=== PATIENT | female | born 1950 | race Caucasian/White ===

== ENCOUNTER → 2018-09-04 | Outpatient (CLI) | payer MEDICARE ==
--- NOTE | 2018-09-04 12:56 | XR ---
EXAMINATION TYPE: XR chest 2V DATE OF EXAM: 09/04/2018 COMPARISON: NONE HISTORY: Preop, Z01.818 TECHNIQUE: Frontal and lateral views of the chest are obtained. FINDINGS: There is no focal air space opacity, pleural effusion, or pneumothorax seen. The cardiac silhouette size is within normal limits. The osseous structures are intact. IMPRESSION: No acute cardiopulmonary process.
--- NOTE | 2018-09-04 12:59 | XR ---
Abdomen HISTORY: Z01.818 Frontal view the abdomen submitted. Surgical clips present right upper quadrant and pelvis. There is no evident bowel obstruction or pneu moperitoneum. Retained fecal debris present throughout the distribution of the colon. Degenerative di sc changes in the visualized spine. Vascular calcifications are noted in the pelvis. IMPRESSION: Postop changes. Nonobstructive bowel gas pattern and additional findings above.
== END ==
LOC: LABPAT 10:46
PROVIDERS: ATTEND Orthopaedic Surgery Orthopaedic Surgery of the Spine
DX: Z01.818 Encounter for other preprocedural examination (principal); G95.89 Other specified diseases of spinal cord
CPT/HCPCS: 71046; 74018

== ENCOUNTER 2018-09-11 11:53 | Day surgery (SDC) | payer MEDICARE ==
[2018-09-04 11:42] LABS: Basophils % (A) 0 %; Eosinophils # (A) 0.1 k/uL (0-0.7); Eosinophils % (A) 4 %; HCT 43.6 % (34.0-46.0); HGB 13.9 gm/dL (11.4-16.0); Lymphocytes # (A) 0.8 k/uL (1.0-4.8); Lymphocytes % (A) 24 %; MCH 29.9 pg (25.0-35.0); MCHC 31.8 g/dL (31.0-37.0); Mean Platelet Volume 6.8; Monocytes # (A) 0.3 k/uL (0-1.0); Monocytes % (A) 7 %; Neutrophils # (A) 2.1 k/uL (1.3-7.7); Neutrophils % (A) 62 %; Platelet Count 266 k/uL (150-450); RBC 4.64 m/uL (3.80-5.40); RDW 12.6 % (11.5-15.5); WBC 3.4 k/uL (3.8-10.6)
[2018-09-04 11:50] LABS: INR 0.9 (<1.2); Partial Thromboplastin Time 24.1 sec (22.0-30.0); Prothrombin Time 9.7 sec (9.0-12.0)
[2018-09-04 12:05] LABS: Anion Gap 7 mmol/L; Blood Urea Nitrogen 18 mg/dL (7-17); Calcium 9.3 mg/dL (8.4-10.2); Carbon Dioxide 27 mmol/L (22-30); Chloride 105 mmol/L (98-107); Glucose 95 mg/dL (74-99); Potassium 4.8 mmol/L (3.5-5.1); Sodium 139 mmol/L (137-145)
[~2018-09-11 11:53] MED LIST: BACITRACIN 50,000 UNIT, POLYMYXIN B 500,000 UNIT in SODIUM CHLORIDE 0.9% IRRIGATIO 1,00... IRRIGATION ONE; DEXAMETHASONE SOD PHOSPHATE 10 MG/ML 1 ML VIAL IV ONE; LIDOCAINE 1% 20 ML VIAL (10MG/ML) FOR IV START INTRADERMA PRN; MIDAZOLAM (PF) 2 MG/2 ML VIAL IV PRN; ONDANSETRON 4 MG/2 ML VIAL IVP ONE; ceFAZolin IN SWFI 2 GM/20 ML SYRINGE IVP ONE; fentaNYL (PF) 50 MCG/ML 2 ML AMP IV PRN
[2018-09-11] MEDS: LACTATED RINGERS 1,000 ML IV SCH (12:22)
[2018-09-11] MEDS ORDERED: fentaNYL (PF) 50 MCG/ML 2 ML AMP ONE (12:28)
[2018-09-11] MEDS ORDERED: LIDOCAINE 1% INJ 10MG/ML (20 ML MDV) ONE (12:28)
[2018-09-11] MEDS ORDERED: PROPOFOL 10 MG/ML 20 ML VIAL IV ONE (12:28)
[2018-09-11] MEDS ORDERED: DEXAMETHASONE SOD PHOS (MDV) 100 MG/10 ML VIAL ONE (12:28)
[2018-09-11] MEDS ORDERED: ePHEDrine SULFATE/0.9% NACL/PF 50 MG/5 ML SYRINGE IV ONE (12:28)
[2018-09-11] MEDS ORDERED: SUCCINYLCHOLINE CHLORIDE 100 MG/5 ML SYR IV ONE (12:28)
[2018-09-11] MEDS ORDERED: MIDAZOLAM 2 MG/2 ML VIAL ONE (12:28)
[2018-09-11] MEDS ORDERED: BUPIVACAINE-EPI 0.5%-1:200,000 10 ML VIAL SQ ONE (13:13)
[2018-09-11] MEDS ORDERED: GELATIN SPONGE,ABSORB (LARGE) 1 EACH SPONGE MISCELLANE ONE (13:13)
[2018-09-11] MEDS ORDERED: THROMBIN (BOVINE) 5,000 UNIT VIAL TOPICAL ONE (13:13)
[2018-09-11] MEDS ORDERED: BACITRACIN 50,000 UNIT, POLYMYXIN B 500,000 UNIT in SODIUM CHLORIDE 0.9% IRRIGATIO 1,00... IRRIGATION ONE (13:14)
[2018-09-11] MEDS ORDERED: LACTATED RINGERS 1,000 ML IV ONE (15:27)
[2018-09-11] MEDS ORDERED: BENZOCAINE/MENTHOL LOZENG 1 EACH LOZENGE MUCOUS MEM PRN (15:44)
[2018-09-11] MEDS ORDERED: HYDROmorphone 0.5 MG/0.5 ML SYRINGE IVP PRN (15:44)
[2018-09-11] MEDS ORDERED: ONDANSETRON 4 MG/2 ML VIAL IVP PRN (15:44)
[2018-09-11] MEDS ORDERED: HYDROmorphone 1 MG/ML 1 ML SYRINGE IVP PRN (15:44)
[2018-09-11] MEDS ORDERED: CYCLOBENZAPRINE 10 MG TAB PO PRN (15:47)
[2018-09-11] MEDS ORDERED: DICYCLOMINE 20 MG TAB PO PRN (15:47)
--- NOTE | 2018-09-11 15:59 | P.OP ---
Date of Procedure: 09/11/18 Preoperative Diagnosis: Cervical Myelopathy, Severe cervical stenosis C5 6, cervical stenosis C4 5 C6 7, degenerative disc disease, left upper extremity radiculopathy, left upper extremity weakness, herniated nucleus pulposis C5 6 C4 5 C6 7, left upper extremity carpal tunnel syndrome Postoperative Diagnosis: Cervical Myelopathy, Severe cervical stenosis C5 6, cervical stenosis C4 5 C6 7, degenerative disc disease, left upper extremity radiculopathy, left upper extremity weakness, herniated nucleus pulposis C5 6 C4 5 C6 7, left upper extremity carpal tunnel syndrome Anesthesia: GETA Pathology: none sent Condition: stable Disposition: PACU Description of Procedure: BRIEF OPERATIVE NOTE Preoperative Diagnosis: Cervical Myelopathy, Severe cervical stenosis C5 6, cervical stenosis C4 5 C6 7, degenerative disc disease, left upper extremity radiculopathy, left upper extremity weakness, herniated nucleus pulposis C5 6 C4 5 C6 7, left upper extremity carpal tunnel syndrome Postoperative Diagnosis: Cervical Myelopathy, Severe cervical stenosis C5 6, cervical stenosis C4 5 C6 7, degenerative disc disease, left upper extremity radiculopathy, left upper extremity weakness, herniated nucleus pulposis C5 6 C4 5 C6 7, left upper extremity carpal tunnel syndrome: Procedure: Anterior cervical decompression with discectomy and fusion C4 5 C5 6 C6 7 Placement of interbody graft C4 5 C5 6 C6 7 Application of anterior cervical plate C4 5 6 and 7 Further procedures also performed during the anesthesia: Left upper extremity carpal tunnel release, through separate incision with the same anesthesia Surgeon: Dr. Berrios Fruit Press Operator: Paulino White is present throughout the entire the case persistence during positioning, dissection, exposure, visualization, and all crucial elements of the case as well as closure for both the anterior cervical decompression discectomy and fusion as well as the carpal tunnel release at the left upper extremity Anesthesia: General anesthesia Estimated blood loss: Approximately 50 mL Complications: None apparent Components implanted: K2M [place] anterior cervical plate system measuring 51 mm with 8 screws and tVikos interbody allograft bone graft and 1 mL of DBX bone putty supplement the bone graft Tourniquet time: For the carpal tunnel release portion of the procedure the tourniquet was inflated to 250 mmHg for Mahendra 12 minutes Disposition: To recovery room in good stable condition. OPERATIVE INDICATIONS The patient has had long-standing issues in their neck and upper extremities. She is found have weakness at her left upper extremity and was having worsening in terms of her function in her left arm. She was found have severe cervical stenosis at C4 5 C5 6 and C6 7 with large disc herniation particular at C5 6 with evidence of myelomalacia and was having signs of cervical myelopathy at her upper extremities. She was also having evidence of carpal tunnel syndrome at her left upper extremity which was electrodiagnostic improvement. The patient is having worsening of her symptoms despite aggressive conservative treatment. The patient has been through conservative treatment. We discussed various treatment options including surgery, and the patient wishes to proceed with surgery We discussed the risk, patient's alternatives and benefits of surgery including but not limited to, risk of bleeding risk of infection, risk of need for further surgery, risk of decreased, loss of motion, muscle function, malunion nonunion, hardware failure, nerve damage, paralysis, heart attack, and . We discussed the issues involved in her cervical spine and the possible permanent damage that has already been done with her myelopathy at her cervical spine we also discussed the risk of occasions alternatives and benefits of treatment of her wrist at the carpal tunnel site. The patient like to pursue surgical intervention signed informed consent for both her cervical spine and for her left carpal tunnel. OPERATIVE SUMMARY After discussing all the risks, patient alternatives and benefits at length, the patient elected to proceed with surgical intervention, signed informed consent, and presented for their procedure. The patient was seen and examined in the preoperative holding area and the surgical site was marked. The patient was given antibiotics and brought to the operating room. The patient was positioned on the operating room table in a supine position being careful to pad any bony prominences and pressure points. The patient was sedated and intubated by anesthesia in standard fashion. Once the airway and C- spine were stabilized the patient's arms were padded and tucked at her side, with her shoulders gently taped. The head was placed in a donut pad with the neck in good neutral alignment and position. We were careful to maintain the patient's cervical spine and good neutral alignment and position throughout. The patient was prepped and draped in a normal standard fashion. An appropriate timeout and keystone protocol performed. We were able to proceed with the surgery. The local wound area was infiltrated with local anesthetic. An incision was made transversely approximately 2-1/2 cm over the appropriate levels at level C5 6. Dissection was taken down subcutaneously to the level of the platysma which was split in line with its fibers. Dissection was taken with a carotid approach, with the trachea and esophagus medial and the carotid sheath laterally. We dissected down to the anterior surface of the vertebral bodies. Intraoperative x-ray was taken which showed a marker at the appropriate level. With the appropriate level positively confirmed, we were able to proceed with discectomy at the appropriate levels starting at C4 5 and then at C5 6 and C6 7. All of the operative levels were exposed appropriately. The patient had all their twitches back, and there was no evidence of recurrent laryngeal issue. The wound was copiously irrigated and suctioned dry as had been done periodically throughout the case. At the appropriate level/levels, strength C4 5 and then moving C5 6 and then C6 7, I established an annulotomy with an 11 blade scalpel. A discectomy was performed with a combination of pituitary rongeurs, curettes, a high-speed bur, and Kerrison rongeurs. The posterior longitudinal ligament was taken down as were any posterior osteophytes. She had evidence of significant stenosis at each levels but had extra severe stenosis at C5 6 with large herniation and posterior spurring. This was removed and decompressed appropriately. This gave good central and bilateral foraminal decompression. There is no evidence of any dural tear or leak. The endplates were prepared with a high-speed bur. With the endplates in good parallel position, I was able to size for the appropriate size interbody graft. The wound was irrigated and suctioned dry the graft was prepared and malleted into position. It had good alignment and position with the anterior surface flush with the anterior surface of the vertebral bodies. This was done similarly the appropriate levels at C4 5 C5 6 and C6 7. With the grafts intact, I was able to measure and contour and appropriate sized plate. The plate was positioned at the midline over the appropriate levels from C4 to C7 with a 51 mm plate. Screw holes were established with a hand drill and drill guide. Screws were placed in good alignment and position with excellent bony purchase. They were seated under the locking device. The construct was checked and found to be stable. Intraoperative x-ray was taken which showed good alignment and position of the implants at the appropriate levels from C4 to C7. There was no evidence of any dural tear or leak. Good hemostasis was maintained. The wound was copiously irrigated and suctioned dry as had been done periodically throughout the case. The platysma was closed with absorbable suture. The subcutaneous tissue was closed. The subcuticular tissue was closed with absorbable suture. The wound was cleaned and dried and dressed appropriately. A soft cervical collar was placed appropriately. At this point under the same anesthesia her left upper extremity was then prepped and draped in a normal standard fashion. Her arm was elevated and a tourniquet was inflated to approximately 250 mmHg. Appropriately timeout was performed again for her left upper extremity for the carpal tunnel surgery. The local wound area isn't infiltrated with local anesthetic and incision was made sharply to skin and subcutis tissue with a 15 blade scalpel proximally 1/2 cm in length. Dissection was taken down through subcutaneous tissue to the transverse carpal ligament which was identified appropriately. The transcarpal ligament was then transected initially with 11 blade scalpel and then with tenotomy status scissors. I was able to extend the release of the transcarpal ligament proximally and distally. I had good release through the carpal tunnel. The median nerve was explored and found to be intact. There is no abnormal growth at the median nerve or within the tunnel. The wound was copiously irrigated and suctioned dry having, pushed good decompression at the carpal tunnel. We're able proceed with closure. The skin was closed with 5-0 nylon. The wrist was then dressed properly appropriate dressing and Kanu wrap and the tourniquet was dropped at 12 minutes. The patient was woken up by anesthesia, extubated, transferred back gently to their hospital bed and brought to the recovery room in good stable condition. The patient will be admitted to the hospital for appropriate postoperative care, medical management and monitoring. We will continue to follow them closely about the postoperative course.
--- NOTE | 2018-09-11 16:53 | XR ---
EXAMINATION TYPE: XR cervical spine 1V DATE OF EXAM: 09/11/2018 COMPARISON: NONE HISTORY: 68-year-old female needle placement during surgery TECHNIQUE: Single crosstable intraoperative lateral view FINDINGS: The patient is intubated. A metallic needle is present in the anterior C4-C5 disc interspace. IMPRESSION: Metallic needle at the anterior C4-C5 disc interspace.
[2018-09-11 17:09] VITALS: BMI 29.5
[2018-09-11] MEDS: HYDROcodone/APAP 5-325MG 1 EACH TAB PO PRN ×2 (17:23→22:08)
--- NOTE | 2018-09-11 18:26 | XR ---
EXAMINATION TYPE: XR cervical spine 1V DATE OF EXAM: 09/11/2018 COMPARISON: NONE HISTORY: 68-year-old female hardware placement TECHNIQUE: Single crosstable lateral portable view of FINDINGS: Patient is intubated in the OR. Interval placement of C4-C7 ACDF hardware with satisfactory alignment . C7-T1 is obscured by the patient's shoulders and not assessed. IMPRESSION: Interval placement of C4-C7 ACDF.
[2018-09-11] MEDS: SODIUM CHLORIDE 0.9% 1,000 ML IV SCH (19:11)
[2018-09-11] MEDS: ceFAZolin IN SWFI 2 GM/20 ML SYRINGE IVP SCH (20:31)
[2018-09-11] MEDS ORDERED: DOCUSATE 100 MG CAP PO SCH (21:00)
[2018-09-11] MEDS ORDERED: cloNIDine HCL 0.1 MG TAB PO SCH (21:00)
[2018-09-12] MEDS: SODIUM CHLORIDE 0.9% 1,000 ML IV SCH (01:09)
[2018-09-12] MEDS: LACTATED RINGERS 1,000 ML IV SCH (01:10)
[2018-09-12] MEDS: HYDROcodone/APAP 5-325MG 1 EACH TAB PO PRN ×3 (01:30→09:47)
[2018-09-12 01:44] VITALS: TEMP 97.8
[2018-09-12] MEDS: ceFAZolin IN SWFI 2 GM/20 ML SYRINGE IVP SCH (05:36)
[2018-09-12 07:14] VITALS: BP 106/66; PULSE 68; RESP 16
--- NOTE | 2018-09-12 08:55 | P.DS ---
Providers Date of admission: 09/11/2018 Expected date of discharge: 09/12/18 Attending physician: Deanna Berrios Primary care physician: Jaz Sorensen - Discharge Diagnosis(es) (1) Cervical myelopathy with cervical radiculopathy Current Visit: Yes Status: Acute (2) Cervical stenosis of spinal canal Current Visit: Yes Status: Acute (3) Degenerative cervical disc Current Visit: Yes Status: Acute (4) Cervical disc herniation Current Visit: Yes Status: Acute (5) Carpal tunnel syndrome of left wrist Current Visit: Yes Status: Acute (6) COPD (chronic obstructive pulmonary disease) Current Visit: Yes Status: Acute Hospital Course: This is a pleasant 68-year-old female who presented with cervical myelopathy, C5-6 severe cervical stenosis and herniated nucleus pulposus, C4-5 and C6-7 cervical stenosis and herniated nucleus pulposis, cervical degenerative disc disease, left upper extremity radiculopathy, left upper extremity weakness, and left upper extremity carpal tunnel syndrome who failed outpatient conservative therapy. She was admitted for a C4-5, C5-6, and C6-7 anterior cervical decompression and fusion and left carpal tunnel release. The patient tolerated the procedure well and did well postoperatively. She is not currently experiencing any numbness and tingling in the bilateral upper extremities. Her pain is been adequately controlled. She is not experiencing any significant c ervical pain. Her most significant complaint is some difficulty with swallowing liquids. She's been swallowing regular foods without significant difficulty. She is ready for discharge today. Condition on day of discharge stable. Patient will be discharged home. Patient was cleared preoperatively for surgery by Dr. Sorensen. Patient currently denies any nausea, vomiting, fever, or chills. Patient is voiding freely without difficulty. Patient may shower Tegaderm dressing intact. Patient may remove Tegaderm dressing in 3 days and shower without a dressing at that time. Patient should keep Steri-Strips intact and allow them to fall off naturally. Patient should refrain from driving until at least after their first follow-up appointment in the office. Patient should avoid excessive neck flexion, extension, rotation, and lateral sidebending; no overhead lifting; no lifting greater than 10 pounds. MAPS has been reviewed today, 09/12/2018, with an Overall Overdose Risk Score of 110 and a narcotic score of 40. An "Opiod Start Talking" Forn has been signed by the patient and myself in place in the patient's chart. A prescription has been written for Narco 5 mg/325 mg take 1 tab every 4 hours as needed for pain, dispensed #42. Patient should avoid anti-inflammatory medications over the next 6 weeks postoperatively. Physical Exam on day of discharge: Patient is awake, alert, and oriented 3 Vital signs stable Good chest excursion with deep inspiration and expiration Abdomen soft nontender No signs or symptoms of DVT; no calf pain Full range of motion of the cervical spine with adequate flexion, extension, and bilateral rotation Forensic Medical Examiner strength, thumb strength, interosseous strength, biceps strength, triceps strength, and shoulder strength positive sustained on the right Biceps strength, triceps strength, and shoulder strength positive sustained on the left Dressing is intact over the left wrist following left carpal tunnel release; dressing is clean, dry, and intact Soft cervical collar intact Incision over the cervical spine is clean, dry, and intact; no erythema, purulence, or signs of infection Tegaderm dressing and non-stick Telfa is removed and replaced during physical examination with Tegaderm and nonstick Telfa Procedures: C4-5, C5-6, and C6-7 anterior cervical decompression and fusion and left carpal tunnel release Patient Condition at Discharge: Stable Plan - Discharge Summary Discharge Rx Participant: No New Discharge Prescriptions: New HYDROcodone/APAP 5-325MG [[place] 5] 1 each PO Q4HR PRN #42 tab PRN Reason: Pain No Action Magnesium Gluconate [Magonate] 500 - 750 mg PO DAILY cloNIDine HCL [Catapres] 0.1 mg PO HS Escitalopram [Lexapro] 10 mg PO DAILY Dicyclomine [Bentyl] 40 mg PO QID PRN PRN Reason: IBS Cyclobenzaprine [Flexeril] 10 mg PO HS PRN PRN Reason: Tension Headache ALPRAZolam [Xanax] 0.5 mg PO HS PRN PRN Reason: Anxiety [place] 400 mg PO DAILY Sennosides [Senna] 1 - 2 tab PO DAILY PRN PRN Reason: Constipation Docusate [Colace] 200 mg PO HS Discharge Medication List ALPRAZolam [Xanax] 0.5 mg PO HS PRN 09/01/18 [History] Cyclobenzaprine [Flexeril] 10 mg PO HS PRN 09/01/18 [History] Dicyclomine [Bentyl] 40 mg PO QID PRN 09/01/18 [History] Docusate [Colace] 200 mg PO HS 09/01/18 [History] Escitalopram [Lexapro] 10 mg PO DAILY 09/01/18 [History] Magnesium Gluconate [Magonate] 500 - 750 mg PO DAILY 09/01/18 [History] Sennosides [Senna] 1 - 2 tab PO DAILY PRN 09/01/18 [History] [place] 400 mg PO DAILY 09/01/18 [History] cloNIDine HCL [Catapres] 0.1 mg PO HS 09/01/18 [History] HYDROcodone/APAP 5-325MG [[place] 5] 1 each PO Q4HR PRN #42 tab 09/12/18 [Rx] Follow up Appointment(s)/Referral(s): Paulino Moran, KIKI [PHYSICIAN [facility] TECHNICIAN] - 09/15/18 9:00 am (Patient may follow-up with Paulino Moran PA-C or Dr. Al Berrios at [facility] on 09/15/2018, following discharge. ) Activity/Diet/Wound Care/Special Instructions: 1. Patient may shower with Tegaderm dressing intact. 2. Patient may remove Tegaderm dressing in 3 days and shower without a dressing at that time. 3. Patient should keep Steri-Strips intact and allow them to fall off naturally. 4. Patient should refrain from driving until at least after their first follow- up appointment in the office. 5. Patient should avoid excessive cervical flexion, extension, rotation, and side bending; avoid overhead lifting; no lifting greater than 10 pounds 6. May wear soft cervical collar for comfort support as needed 7. Keep dressing over the left wrist clean, dry, and intact 8. Avoid heavy activity with the left wrist; may use left hand for light activities including holding a cup and writing 9. Take medications as prescribed 10. Do not soak in tub Discharge Disposition: HOME SELF-CARE
[2018-09-12] MEDS ORDERED: ESCITALOPRAM 10 MG TAB PO SCH (09:00)
[2018-09-12] MEDS ORDERED: SENNOSIDES-DOCUSATE SODIUM 1 EACH TAB PO SCH (09:00)
[2018-09-12] MEDS ORDERED: MAGNESIUM OXIDE 400 MG TAB PO SCH (12:00)
== END 2018-09-12 10:25 | disposition home or self-care (01) ==
LOC: OR 11:53 → 4SSUR 15:26 → OR 09-12 10:25
PROVIDERS: ATTEND Orthopaedic Surgery Orthopaedic Surgery of the Spine
DX: G95.9 Disease of spinal cord, unspecified (principal); M48.02 Spinal stenosis, cervical region; M50.10 Cervical disc disorder with radiculopathy, unspecified cervical region; M50.121 Cervical disc disorder at C4-C5 level with radiculopathy; M43.12 Spondylolisthesis, cervical region; M47.22 Other spondylosis with radiculopathy, cervical region; G56.02 Carpal tunnel syndrome, left upper limb; J44.9 Chronic obstructive pulmonary disease, unspecified; K50.90 Crohn's disease, unspecified, without complications; J98.4 Other disorders of lung; Z87.891 Personal history of nicotine dependence; Z79.899 Other long term (current) drug therapy
CPT/HCPCS: 86900; 86901; 80048; 85025; 85610; 85730; 86850; 72020; 22551; 22552 ×2; 20931; C1713 ×2; C1762 ×2; J2250; J2405; J2001; J3010; J1100; J0330; J2704; J0690 ×2

== ENCOUNTER → 2021-06-02 | Outpatient (CLI) | payer MEDICARE ==
[2021-06-02 14:51] LABS: Basophils % (A) 1 %; Eosinophils # (A) 0.2 k/uL (0-0.7); Eosinophils % (A) 3 %; HCT 50.7 % (34.0-46.0); HGB 16.4 gm/dL (11.4-16.0); Lymphocytes # (A) 1.4 k/uL (1.0-4.8); Lymphocytes % (A) 22 %; MCH 31.6 pg (25.0-35.0); MCHC 32.4 g/dL (31.0-37.0); MCV 97.6 fL (80.0-100.0); Mean Platelet Volume 7.6; Monocytes # (A) 0.4 k/uL (0-1.0); Monocytes % (A) 6 %; Neutrophils # (A) 4.4 k/uL (1.3-7.7); Neutrophils % (A) 68 %; Platelet Count 255 k/uL (150-450); RBC 5.19 m/uL (3.80-5.40); RDW 11.8 % (11.5-15.5); WBC 6.5 k/uL (3.8-10.6)
[2021-06-02 15:00] LABS: Potassium 4.3 mmol/L (3.5-5.1)
[2021-06-02 15:08] LABS: INR 0.9 (<1.2)
== END | disposition home or self-care (01) ==
LOC: LABPAT 14:13
PROVIDERS: ATTEND Family Medicine
DX: Z01.812 Encounter for preprocedural laboratory examination (principal); R91.1 Solitary pulmonary nodule
CPT/HCPCS: 36415; 80051; 82565; 82947; 84520; 85025; 85610; 85730; 86850; 86900; 86901

== ENCOUNTER 2021-06-11 05:50 | Inpatient (IN) | payer MEDICARE ==
[2021-06-03 16:07] VITALS: BMI 26.9
[~2021-06-11 05:50] MED LIST changes: -BACITRACIN 50,000 UNIT, POLYMYXIN B 500,000 UNIT in SODIUM CHLORIDE 0.9% IRRIGATIO 1,00... IRRIGATION ONE; -DEXAMETHASONE SOD PHOSPHATE 10 MG/ML 1 ML VIAL IV ONE; +DEXAMETHASONE SOD PHOSPHATE 4 MG/ML 1 ML VIAL IV ONE; +LACTATED RINGERS 1,000 ML IV SCH; +LIDOCAINE 1% (10MG/ML) FOR IV START INTRADERMA PRN; -LIDOCAINE 1% 20 ML VIAL (10MG/ML) FOR IV START INTRADERMA PRN; -MIDAZOLAM (PF) 2 MG/2 ML VIAL IV PRN; -ceFAZolin IN SWFI 2 GM/20 ML SYRINGE IVP ONE; -fentaNYL (PF) 50 MCG/ML 2 ML AMP IV PRN
[2021-06-11] MEDS ORDERED: METOCLOPRAMIDE 5 MG/ML 2 ML VIAL IVP PRN (07:00)
[2021-06-11] MEDS ORDERED: MIDAZOLAM 2 MG/2 ML VIAL IVP ONE (07:12)
[2021-06-11] MEDS ORDERED: BUPIVACAINE (PF) 0.5% 30 ML VIAL SQ ONE ×3 (07:29→09:25)
[2021-06-11] MEDS ORDERED: GLYCOPYRROLATE 0.2 MG/ML 2 ML VIAL ONE (07:35)
[2021-06-11] MEDS ORDERED: SUCCINYLCHOLINE CHLORIDE 100 MG/5 ML SYR IV ONE (07:35)
[2021-06-11] MEDS ORDERED: NEOSTIGMINE 1 MG/ML 10 ML VIAL ONE (07:35)
[2021-06-11] MEDS ORDERED: ROPIVACAINE 5 MG/ML 30 ML VIAL ONE (07:35)
[2021-06-11] MEDS ORDERED: PHENYLEPHRINE-0.9% NACL SYG 1,000 MCG/10 ML SYRINGE ONE (07:35)
[2021-06-11] MEDS ORDERED: ROCURONIUM 10 MG/ML (5 ML VIAL) IV ONE (07:35)
[2021-06-11] MEDS ORDERED: fentaNYL (PF) 50 MCG/ML 2 ML AMP ONE (07:35)
[2021-06-11] MEDS ORDERED: LIDOCAINE 1% INJ 10MG/ML (20 ML MDV) ONE (07:35)
[2021-06-11] MEDS ORDERED: PROPOFOL 10 MG/ML 20 ML VIAL IV ONE (07:35)
[2021-06-11] MEDS ORDERED: HYDROmorphone (PF) 1 MG/ML ONE (07:35)
[2021-06-11] MEDS ORDERED: LACTATED RINGERS 1,000 ML IV ONE (09:07)
--- NOTE | 2021-06-11 09:23 | P.OP ---
Date of Procedure: 06/11/21 Preoperative Diagnosis: Rught upper lobe mass Postoperative Diagnosis: Same Procedure(s) Performed: Robotic-assisted thoracoscopic right upper lobe wedge resection with mediastinal lymph node dissection Anesthesia: GETA Surgeon: Evans Geller Estimated Blood Loss (ml): 5 IV fluids (ml): 800 Urine output (ml): 300 Pathology: other (Wedge resection right upper lobe sent for frozen and permanent. Lymph node dissection including R4, level 7,R8, R 10, and R 11 lymph nodes all sent for permanent section) Condition: stable Disposition: PACU Indications for Procedure: 71-year-old female with history of smoking had a screening CT for lung cancer which was positive for small peripheral mass in the right upper lobe. PET scan showed mild uptake in the mass as well as mild diffuse uptake in the lymph nodes throughout. There were no markedly enlarged lymph nodes. Patient has severe bullous lung disease and needle biopsy was felt to be high risk. Also the lesion was less than a centimeter. Was decided to proceed with wedge resection and mediastinal lymph node dissection for diagnosis and staging. Presumptive diagnosis of cancer. Operative Findings: Diffuse lung disease present. There was a small apparent nodule in the right upper lobe with pleural puckering of the fissure. Wedge resection was taken with good gross margins. Multiple lymph nodes were biopsied. These appeared anthracotic soft and without evidence of disease. Description of Procedure: The patient was brought to the operating room, placed supine on the operating room table, anesthetized and intubated with a double-lumen endotracheal tube. The tube was positioned with fiberoptic bronchoscopy. No endobronchial lesions were noted. Tube was secured and the patient was turned in the left lateral decubitus position and appropriately positioned for robotic surgery. The right chest was sterilely prepped and draped. Initial incision was made in the seventh interspace in the anterior axillary line. A 8 mm robotic port was placed here. Thoracoscopy demonstrated placement in the pleural space CO2 insufflation was begun. A 12 mm robotic port was placed in the eighth interspace posterior to this and a second 12 mm port was placed anterior to this. An 8 mm port was placed in the fourth interspace posteriorly. A working port was placed between the 2 most anterior ports at the level of the diaphragm. The robot was docked. The chest was explored with findings as noted above. Wedge resection of the pulmonary nodule was performed with multiple firings of the robotic stapler. This was then placed in an Endo Catch bag and laced on the back table. It was subsequently cut and a small piece obtained for possible culture and the remainder sent for frozen section. We now proceeded with the lymph node dissection. We began by dissecting out the level X lymph nodes on the right side and sending these for permanent section. We then moved up to the R4 lymph node region and resected a number of nodes in this area. These were also sent for permanent section. We now moved posteriorly and resected the R8 and level VII lymph nodes and sent these for permanent section. Dissection was carried anterior to the rhonchus intermedius and the R 11 lymph nodes between the takeoff of the upper lobe and bronchus intermedius were resected and sent as R 11 lymph nodes. Good hemostasis was maintained throughout. 28-Thai chest tube was placed through separate stab incision and positioned posterior apically. The lung was reexpanded under thoracoscopic visualization. The chest tube was secured with 0 Ethibond suture and the incisions closed with layers of Vicryl suture. Dry sterile dressings were applied the patient was transferred to recovery in stable condition. Frozen section was still pending at the time of this dictation.
--- NOTE | 2021-06-11 10:00 | XR ---
EXAMINATION TYPE: XR chest 1V portable DATE OF EXAM: 06/11/2021 CLINICAL HISTORY: Post-VATS . TECHNIQUE: Single AP portable upright view of the chest is obtained. COMPARISON: Chest x-ray from September 04, 2018. Outside Chest CT April 16, 2021 and PET/CT April FINDINGS: Background chronic emphysematous change redemonstrated. New small left pleural effusion. N ew left mid to lower lung infiltrate and/or atelectasis greatest along the periphery. New right-sided chest tube without visualized pneumothorax. Possible air-fluid level in thin-walled c yst right mid lung laterally adjacent to chest tube. Osseous structures are demineralized. Surgical changes cervical spine as partially imaged. Cardiac si lhouette size is upper limits of normal. IMPRESSION: As above.
[2021-06-11] MEDS: HYDROmorphone 0.5 MG/0.5 ML SYRINGE IVP PRN ×2 (10:09→10:21)
--- NOTE | 2021-06-11 12:00 | P.ANPRN ---
Procedure Note - Anesthesia - Nerve Block Performed Right Erector Spinae Single Time Out Performed: Yes ([id number]) Date of Procedure: 06/11/21 Procedure Start Time: 07:12 Procedure Stop Time: 07:16 Location of Patient: PreOp Indication: Acute Post-Operative Pain, Requested by Surgeon Specifically requested for management of pain by DrArleen: Evans Geller Sedation Type: Sedate with meaningful contact maintained Preparation: Sterile Prep Position: Prone Catheter: None Needle Types: Pajunk Needle Gauge: 21 Ultrasound used to visualize needle placement: Yes Ultrasound used to observe medication spread: Yes Injectate: 0.5% Ropivacaine (see comment for volume) (30cc) Blood Aspirated: No Pain Paresthesia on Injection Noted: No Resistance on Injection: Normal Image Stored and Saved: Yes Events: Uneventful and Well Tolerated
[2021-06-11] MEDS ORDERED: ONDANSETRON 4 MG/2 ML VIAL IVP PRN (12:48)
[2021-06-11] MEDS ORDERED: SENNOSIDES 8.6 MG TAB PO PRN (12:48)
[2021-06-11] MEDS ORDERED: IPRATROPIUM-ALBUTEROL 3 ML NEB IH PRN (12:48)
[2021-06-11] MEDS ORDERED: DEXTROSE 5%-0.45% NACL 1,000 ML IV SCH (12:48)
[2021-06-11] MEDS ORDERED: BACLOFEN 10 MG TAB PO PRN (12:48)
[2021-06-11] MEDS ORDERED: ACETAMINOPHEN TAB 325 MG TAB PO PRN (12:48)
[2021-06-11] MEDS ORDERED: ALPRAZolam 0.5 MG TAB PO PRN (12:48)
[2021-06-11] MEDS: traMADol 50 MG TAB PO SCH ×2 (13:42→17:48)
[2021-06-11] MEDS: KETOROLAC 30 MG/ML 1 ML VIAL IVP SCH ×2 (15:15→20:12)
[2021-06-11] MEDS: IPRATROPIUM-ALBUTEROL 3 ML NEB IH SCH ×3 (16:15→21:46)
[2021-06-11] MEDS: HEPARIN SODIUM,PORCINE/PF 5,000 UNIT/0.5 ML SYRINGE SQ SCH (16:46)
[2021-06-11] MEDS: PILOCARPINE 5 MG TAB PO SCH ×2 (16:52→20:13)
--- NOTE | 2021-06-11 17:19 | P.CNPUL ---
History of Present Illness Consult date: 06/11/21 Reason for consult: lung mass History of present illness: This is a 69-year-old female patient with COPD and the patient was undergoing a low-dose CAT scan of the chest for lung cancer screening and the patient was found to have a right upper lobe pulmonary mass/nodule that showed some mild activity on the PET scan. No significant mediastinal lymphadenopathy or uptake within the mediastinum. Based on that, the patient was taken to the operating room. The patient underwent a wedge resection of the right upper lobe mass. The same time there was dissection of the mediastinal lymph nodes including 4R, 10, 11 R, and station 7 lymph nodes. The patient was given a 28-Ivorian chest tube and following that the patient was brought into the medical floor. The patient had the surgery under robotic assistance. Surgical site is dry clean and intact. The chest x-ray postop showed no evidence of any pneumothorax. Output from the chest tube is minimal at this point in time. No evidence of any bleeding. No evidence of any air leak. The right-sided chest tube is in a good location. No is no evidence of any pneumothorax. The patient is following commands. The patient has any questions appropriately. Pain is under adequate control for now. She is on heparin subcu for DVT prophylaxis. Review of Systems For review of system cannot be done as the patient is currently postop. She is under the effect of anesthetic agents still and she is not fully alert and awake. She reports that her pain is under good control. No other constitutional symptoms prior to the surgery. She did however significant am ount of emphysema. Unable to locate a based on pulmonary function test on this patient. Past Medical History Additional Past Medical History / Comment(s): Past medical history is positive for COPD, IBS, dysplastic nevus of the skin, aneurysm of the thoracic aorta, internal hemorrhoids, Crohn's disease, diverticular disease, herniation of the rectum into the vagina, first degree uterine prolapse, osteoporosis History of Any Multi-Drug Resistant Organisms: None Reported Past Surgical History: Cholecystectomy, Tonsillectomy Additional Past Surgical History / Comment(s): COLONOSCOPY, EGD, cervical fusion,. HEMORRHOIDECTOMY Past Anesthesia/Blood Transfusion Reactions: No Reported Reaction Smoking Status: Former smoker - Past Family History Mother Family Medical History: Deep Vein Thrombosis (DVT) Additional Family Medical History / Comment(s): AND POSSIBLE PE Medications and Allergies Home Medications Medication Instructions Recorded Confirmed Type ALPRAZolam [Xanax] 0.5 mg PO HS PRN 09/01/18 06/11/21 History Cyclobenzaprine [Flexeril] 10 mg PO HS 09/01/18 06/11/21 History Docusate [Colace] 200 mg PO HS 09/01/18 06/11/21 History Magnesium Gluconate [Magonate] 500 mg PO DAILY 09/01/18 06/11/21 History Sennosides [Senna] 1 - 2 tab PO DAILY PRN 09/01/18 06/11/21 History Albuterol Inhaler [Ventolin Hfa 2 puff INHALATION RT-QID PRN 06/03/21 06/11/21 History Inhaler] Baclofen [Lioresal] 10 mg PO BID PRN 06/03/21 06/11/21 History Budesonide-Formot 160-4.5 Mcg 2 puff INHALATION BID 06/03/21 06/11/21 History [Symbicort 160-4.5 Mcg Inhaler] Cholecalciferol [Vitamin D3 (25 25 mcg PO DAILY 06/03/21 06/11/21 History Mcg = 1000 Iu)] Ipratropium [place] 0.06%Nasal 2 spray EA NOSTRIL DAILY 06/03/21 06/11/21 History [Atrovent Nasal 0.06%] Pilocarpine [Salagen] 5 mg PO TID 06/03/21 06/11/21 History Allergies Allergy/AdvReac Type Severity Reaction Status Date / Time No Known Allergies Allergy Verified 06/11/21 06:25 Physical Exam Vitals: Vital Signs Temp Pulse Pulse Resp BP BP BP 06/11/21 16:00 97.9 F 82 18 06/11/21 12:00 78 16 06/11/21 11:30 78 16 06/11/21 11:15 77 16 06/11/21 11:00 81 16 06/11/21 10:45 76 16 137/61 06/11/21 10:30 75 16 117/63 138/62 06/11/21 10:15 71 16 117/66 138/64 06/11/21 10:00 68 16 113/59 134/60 06/11/21 09:45 71 16 118/63 06/11/21 09:33 97.2 F L 78 12 128/65 06/11/21 07:16 67 16 116/59 06/11/21 06:36 97.1 F L 76 15 131/83 BP Pulse Ox 06/11/21 16:00 124/73 95 06/11/21 12:00 112/60 97 06/11/21 11:30 114/61 97 06/11/21 11:15 106/58 97 06/11/21 11:00 106/59 97 06/11/21 10:45 98 06/11/21 10:30 100 06/11/21 10:15 100 06/11/21 10:00 100 06/11/21 09:45 100 06/11/21 09:33 99 06/11/21 07:16 97 06/11/21 06:36 96 Intake and Output 06/11/21 06/11/21 06/11/21 06:59 14:59 22:59 Intake Total 1350 Output Total 305 Balance 1045 Intake: IV 1350 Output: Urine 300 Estimated Blood Loss 5 Other: Weight 76.7 kg Results - Diagnostic Findings Chest x-ray: image reviewed Assessment and Plan Plan: 1 right upper lobe pulmonary nodule, suspicious for malignancy and the patient underwent a robotic-assisted right upper lobe resection along with mediastinal lymphadenopathy. The patient underwent wedge resection of the right upper lobe mass. For now, the patient is postop day #0. The patient has a right-sided chest tube in place. Postop chest x-ray showed no evidence of any pneumothorax and no significant air leak or output from the chest to 2 COPD with bilateral emphysematous changes with bullous changes in the upper lobes bilaterally 3 history of smoking 4 history of chronic exertion this was secondary to COPD 5 history of Crohn's disease 6 history of diverticular disease 7 history of first-degree uterine prolapse 8 osteoporosis 9 aneurysm of the thoracic aorta 10 dysplastic nevus Plan Maintain oxygen levels above 90%, currently on 2 L of oxygen by nasal cannula Pain control with Toradol and the patient will be receiving 15 mg IV every 6 hours on a when necessary basis Continue tramadol for pain control Keep the chest tube in place and monitor the output Daily chest x-rays DuoNeb nebulized treatments 4 times a day around the clock and as needed Heparin subcu for DVT prophylaxis Resume home medication will continue to follow her progress along with the surgical team.
[2021-06-11] MEDS ORDERED: SYMBICORT 160-4.5 MCG INHALER INHALATION SCH (20:00)
[2021-06-11] MEDS ORDERED: DOCUSATE 100 MG CAP PO SCH (21:00)
[2021-06-11] MEDS ORDERED: CYCLOBENZAPRINE 10 MG TAB PO SCH (21:00)
[2021-06-12] MEDS: traMADol 50 MG TAB PO SCH ×2 (00:29→05:57)
[2021-06-12] MEDS: HEPARIN SODIUM,PORCINE/PF 5,000 UNIT/0.5 ML SYRINGE SQ SCH ×2 (00:30→08:27)
[2021-06-12] MEDS: KETOROLAC 30 MG/ML 1 ML VIAL IVP SCH ×2 (03:52→08:28)
[2021-06-12] MEDS ORDERED: PANTOPRAZOLE 40 MG TABLET PO SCH (07:30)
[2021-06-12] MEDS: PILOCARPINE 5 MG TAB PO SCH (08:29)
[2021-06-12 08:35] VITALS: RESP 16; TEMP 98.3
--- NOTE | 2021-06-12 08:39 | XR ---
EXAMINATION TYPE: XR chest 1V DATE OF EXAM: 06/12/2021 COMPARISON: 06/11/2021 INDICATION: Post VATS TECHNIQUE: Single frontal view of the chest is obtained. FINDINGS: The heart size is normal. The pulmonary vasculature is normal. There is interval development of some linear opacity at the left base compatible with atelectasis. Pa tchy infiltrate is at the area of the surgical change right upper lobe. Small loculated pneumothorax remains present. Right-sided chest tube directed towards the apex. IMPRESSION: 1. Loculated right sided small pneumothorax. 2. Plate atelectasis left base. 3. Right-sided chest tube stable
[2021-06-12] MEDS ORDERED: IPRATROPIUM BROMIDE 0.06% NASAL SPRAY (15 ML) EA NOSTRIL SCH (09:00)
[2021-06-12] MEDS ORDERED: MAGNESIUM OXIDE 400 MG TAB PO SCH (09:00)
[2021-06-12] MEDS ORDERED: CHOLECALCIFEROL 25 MCG (1000 IU) TABLET PO SCH (09:00)
--- NOTE | 2021-06-12 09:02 | P.PN ---
Subjective Progress Note Date: 06/12/21 Principal diagnosis: Right upper lobe mass. History of previous tobacco dependence and COPD, IBS, aneurysm of the thoracic aorta, depression. POD #1 robotic assisted thoracoscopic right upper lobe wedge resection with mediastinal lymph node dissection The patient was seen and examined this morning with Dr. Young. She was sitting up in bed in no acute distress. States pain is mostly control with current medication regimen, denies shortness of breath. She has been ambulatory back and forth to the bathroom without difficulty. Right pleural chest tube remains to water seal, no air leak present. Very minimal drainage. She remains on room air with good oxygen saturations. She is tolerating her diet. No new concerns. Objective - Vital Signs Vital signs: Vital Signs Temp 98.3 F 06/12/21 08:34 Pulse 68 06/12/21 08:34 Resp 16 06/12/21 08:34 BP 106/68 06/12/21 08:34 Pulse Ox 93 L 06/12/21 08:34 Intake & Output 06/11/21 06/12/21 06/12/21 18:59 06:59 18:59 Intake Total 1350 485 240 Output Total 305 19 Balance 1045 466 240 Intake: IV 1350 Oral 485 240 Output: Chest Tube Drainage 19 Chest Tube Right 19 Urine 300 Estimated Blood Loss 5 Other: Voiding Method Toilet Toilet # Voids 1 1 - Exam CONSTITUTIONAL: Appears comfortable, cooperative, no acute distress RESPIRATORY: Lungs sounds diminished bilaterally. Respirations even, nonlabored. Currently on room air with oxygen saturation 93%. Strong cough. CARDIOVASCULAR: S1, S2 present. Regular rate and rhythm, sinus rhythm on telemetry. Palpable peripheral pulses bilaterally. No edema present. No calf pain or tenderness noted. SCDs present. GASTROINTESTINAL: Abdomen soft, nontender, nondistended. Active bowel sounds present 4 quadrants. Tolerating diet. GENITOURINARY: Continues to void clear, yellow urine INTEGUMENTARY: Skin is warm and dry with evidence of good perfusion. Thoracic incisions well approximated and covered with dry intact dressing. NEUROLOGIC: Cranial nerves II through XII intact MUSKULOSKELETAL: Able to move all extremities, strength equal bilaterally, gait normal PSYCHIATRIC: Alert and oriented to person place and time, appropriate affect, intact judgment and insight INVASIVE LINES AND TUBES: Right pleural chest tube present to waterseal, no air leaks present, 20 mL serosanguineous drainage since surgery. - Allied health notes Allied health notes reviewed: nursing - Imaging and Cardiology Chest x-ray: report reviewed, image reviewed Assessment and Plan Assessment: 1. Right upper lobe mass, status post robotic assisted thoracoscopic right upper lobe wedge resection with mediastinal lymph node dissection 2. Previous tobacco dependence 3. COPD 4. IBS 5. Aneurysm of the thoracic aorta 6. Depression Plan: 1. Chest tube clamped. We will unclamp into hours, if no air leak will discontinue pleural chest tube. 2. Encourage incentive spirometry use 3. Increase activity, ambulate as tolerated 4. Will obtain post-chest tube removal chest x-ray 5. Pain control per medication regimen 6. If chest x-rays remains stable will discharge to home. Follow-up appointments to be made 7. More recommendations to follow Time with Patient: Greater than 30
[2021-06-12] MEDS: IPRATROPIUM-ALBUTEROL 3 ML NEB IH SCH (09:14)
[2021-06-12 10:19] LABS: Basophils % (A) 0 %; Eosinophils % (A) 1 %; HCT 46.4 % (34.0-46.0); HGB 14.6 gm/dL (11.4-16.0); Lymphocytes # (A) 1.5 k/uL (1.0-4.8); Lymphocytes % (A) 18 %; MCH 31.1 pg (25.0-35.0); MCHC 31.4 g/dL (31.0-37.0); MCV 99.3 fL (80.0-100.0); Mean Platelet Volume 7.7; Monocytes # (A) 0.6 k/uL (0-1.0); Monocytes % (A) 7 %; Neutrophils # (A) 6.1 k/uL (1.3-7.7); Neutrophils % (A) 73 %; Platelet Count 225 k/uL (150-450); RBC 4.67 m/uL (3.80-5.40); RDW 11.8 % (11.5-15.5); WBC 8.3 k/uL (3.8-10.6)
[2021-06-12 12:28] VITALS: BP 119/68; PULSE 75
--- NOTE | 2021-06-12 13:46 | P.DS ---
Providers Date of admission: 06/11/21 05:50 Expected date of discharge: 06/12/21 Attending physician: Evans Geller Consults: 06/11/21 12:48 Consult Physician Routine Consulting Provider: Luis Fernando Malone Consult Reason/Comments: pulm management Do you want consulting provider notified?: Already Contacted Primary care physician: Jaz Sorensen [facility] Course: FINAL DIAGNOSIS: 1. Right upper lobe mass 2. Previous tobacco dependence, COPD 3. History of IBS 4. History of aneurysm of the thoracic aorta, being followed by thoracic surgery 5. History of depression PRINCIPAL PROCEDURE: Robotic assisted thoracoscopic right upper lobe wedge resection with mediastinal lymph node dissection, pathology pending HISTORY OF PRESENT ILLNESS: This is a 71-year-old active female who follows on an outpatient basis with Dr. Jaz Sorensen. As she is a previous smoker she had screening CT scans for possible lung cancer. On her second computed tomography scan there was mention of a 4 cm dilation of the ascending aorta and she was sent to Dr. Geller for consultation. No surgical intervention was recommended at that time, however she was recommended to have annual CT scans to follow. Computed tomography scan which was completed in March 2021 demonstrated stable ascending aorta, however there was enlargement a pulmonary nodule in the right lung and she subsequently underwent PET scan which demonstrated very mild uptake in the lung nodule with SUV of 2, as well as some uptake in the hilar lymph node and in a contralateral mediastinal lymph node. She was recommended to undergo thoracoscopic wedge resection including lymph node dissection. The usual perioperative course was discussed in detail with the patient and her , all risks and benefits were explained, all questions were answered, and consent was obtained to proceed with surgery. She was scheduled for surgery at the earliest possible date after obtaining medical clearance from her primary care physician. HOSPITAL COURSE: The patient was brought to the hospital on 06/11/2021, taken to the preoperative area, prepared in the usual fashion, and subsequently taken to the operating room where Dr. Geller performed a robotic assisted thoracoscopic right upper lobe wedge resection with mediastinal lymph node dissection. Upon completion of surgery the patient was extubated without difficulty and admitted to 3 S. cardiac stepdown for further monitoring. Her right pleural chest tube was placed to waterseal the night of surgery as she had no air leak. The following morning she continued to have no air leak and her chest tube was discontinued without incident. Follow-up chest x-ray was stable. Her oxygen was titrated down, she was tolerating oral diet, her pain was controlled, and she was ready to be discharged to home on postoperative day #1. She received written and verbal instruction regarding her medications, activity restrictions, signs and symptoms requiring physician notification, and follow-up appointments. Patient Condition at Discharge: Stable Plan - Discharge Summary Discharge Rx Participant: No New Discharge Prescriptions: New Acetaminophen Tab [Tylenol] 650 mg PO Q4HR PRN tab PRN Reason: Fever And/ Or Pain Continue Magnesium Gluconate [Magonate] 500 mg PO DAILY Cyclobenzaprine [Flexeril] 10 mg PO HS ALPRAZolam [Xanax] 0.5 mg PO HS PRN PRN Reason: Anxiety Sennosides [Senna] 1 - 2 tab PO DAILY PRN PRN Reason: Constipation Docusate [Colace] 200 mg PO HS Pilocarpine [Salagen] 5 mg PO TID Ipratropium [place] 0.06%Nasal [Atrovent Nasal 0.06%] 2 spray EA NOSTRIL DAILY Baclofen [Lioresal] 10 mg PO BID PRN PRN Reason: Muscle Spasm Cholecalciferol [Vitamin D3 (25 Mcg = 1000 Iu)] 25 mcg PO DAILY Budesonide-Formot 160-4.5 Mcg [Symbicort 160-4.5 Mcg Inhaler] 2 puff INHALATION BID Albuterol Inhaler [Ventolin Hfa Inhaler] 2 puff INHALATION RT-QID PRN PRN Reason: Shortness Of Breath Discharge Medication List ALPRAZolam [Xanax] 0.5 mg PO HS PRN 09/01/18 [History] Cyclobenzaprine [Flexeril] 10 mg PO HS 09/01/18 [History] Docusate [Colace] 200 mg PO HS 09/01/18 [History] Magnesium Gluconate [Magonate] 500 mg PO DAILY 09/01/18 [History] Sennosides [Senna] 1 - 2 tab PO DAILY PRN 09/01/18 [History] Albuterol Inhaler [Ventolin Hfa Inhaler] 2 puff INHALATION RT-QID PRN 06/03/21 [History] Baclofen [Lioresal] 10 mg PO BID PRN 06/03/21 [History] Budesonide-Formot 160-4.5 Mcg [Symbicort 160-4.5 Mcg Inhaler] 2 puff INHALATION BID 06/03/21 [History] Cholecalciferol [Vitamin D3 (25 Mcg = 1000 Iu)] 25 mcg PO DAILY 06/03/21 [His tory] Ipratropium [place] 0.06%Nasal [Atrovent Nasal 0.06%] 2 spray EA NOSTRIL DAILY 06/03/21 [History] Pilocarpine [Salagen] 5 mg PO TID 06/03/21 [History] Acetaminophen Tab [Tylenol] 650 mg PO Q4HR PRN tab 06/12/21 [Rx] Follow up Appointment(s)/Referral(s): Jaz Sorensen MD [Primary Care Provider] - As Needed Evans Geller MD [STAFF PHYSICIAN] - 06/18/21 12:30 pm Luis Fernando Malone MD [STAFF PHYSICIAN] - 06/26/21 1:00 pm Activity/Diet/Wound Care/Special Instructions: DISCHARGE INSTRUCTIONS: 1. No driving for 3 days, or until physician gives their ok. 2. No lifting, pushing, or pulling more than 10 pounds for 2 weeks. The physician will advise of any restriction changes. 3. Continue pain control per as needed orders. Alternate acetaminophen (Tylenol) and ibuprofen (Motrin/Advil) for pain. 4. Continue with incentive spirometry and splinting until otherwise directed by the physician. 5. Leave chest tube dressing for 48 hours. After that, remove all dressings and shower daily. 6. Routine incision care. No powders, lotions, ointments on incisions. 7. Please call surgeon/[employer] for temp greater than 101 F or purulent drainage from incisions. Discharge Disposition: HOME SELF-CARE
--- NOTE | 2021-06-12 14:31 | XR ---
EXAMINATION TYPE: XR chest 2V DATE OF EXAM: 06/12/2021 COMPARISON: 06/12/2021 INDICATION: Post chest tube removal TECHNIQUE: Single frontal view of the chest is obtained. FINDINGS: The heart size is normal. The pulmonary vasculature is normal. Linear opacities are developing along the left mid and lower lung field compatible plate atelectasis. Postsurgical changes are noted in the right mid to upper lung field. There is interval development of a small to moderate right apical pneumothorax. Follow-up is recommended. IMPRESSION: 1. Interval development of a small to moderate right apical pneumothorax. 2. Increasing platelike atelectasis left base A Red level critical message alert has been initiated for Vicenta Jones via the [employer] Results System on 06/12/2021 2:29 PM. This message alert has been sent to Vicenta Jones via the prefe rences provided by the clinician for the receipt of Radiology Critical Findings. Message ID [id number].
--- NOTE | 2021-06-12 14:40 | P.PN ---
Subjective Progress Note Date: 06/12/21 on today's evaluation of 1 [id number], the patient is stable. The patient is postop day #1. The patient underwent a robotic-assisted thoracoscopic wedge resection of the right upper lobe mass along with mediastinal lymph node dissection. The chest x-ray from today shows a left-sided pneumothorax. Output from the chest tube is minimal. There is no evidence of any air leak. There is no evidence of any bloody output from the chest tube. The patient is doing well. The patient's hemodynamics is stable. She has no specific complaints. She is afebrile. No other concerns for now. Chest tube will be removed and the patient will likely be discharged home today. Case was discussed with the cardiothoracic team. Objective - Vital Signs Vital signs: Vital Signs Temp 98.3 F 06/12/21 08:34 Pulse 75 06/12/21 12:27 Resp 16 06/12/21 12:27 BP 119/68 06/12/21 12:27 Pulse Ox 92 L 06/12/21 12:27 Intake & Output 06/11/21 06/12/21 06/12/21 18:59 06:59 18:59 Intake Total 1350 485 240 Output Total 305 19 Balance 1045 466 240 Intake: IV 1350 Oral 485 240 Output: Chest Tube Drainage 19 Chest Tube Right 19 Urine 300 Estimated Blood Loss 5 Other: Voiding Method Toilet Toilet Toilet # Voids 1 1 - Exam CONSTITUTIONAL: Appears comfortable, cooperative, no acute distress RESPIRATORY: Lungs sounds diminished bilaterally. Respirations even, nonlabored. Currently on room air with oxygen saturation 93%. Strong cough. CARDIOVASCULAR: S1, S2 present. Regular rate and rhythm, sinus rhythm on telemetry. Palpable peripheral pulses bilaterally. No edema present. No calf pain or tenderness noted. SCDs present. GASTROINTESTINAL: Abdomen soft, nontender, nondistended. Active bowel sounds present 4 quadrants. Tolerating diet. GENITOURINARY: Continues to void clear, yellow urine INTEGUMENTARY: Skin is warm and dry with evidence of good perfusion. Thoracic incisions well approximated and covered with dry intact dressing. NEUROLOGIC: Cranial nerves II through XII intact MUSKULOSKELETAL: Able to move all extremities, strength equal bilaterally, gait normal PSYCHIATRIC: Alert and oriented to person place and time, appropriate affect, intact judgment and insight INVASIVE LINES AND TUBES: Right pleural chest tube present to [facility], no air leaks present, 20 mL serosanguineous drainage since surgery. - Labs CBC & Chem 7: 06/12/21 09:38 Labs: Abnormal Lab Results - Last 24 Hours (Table) 06/12/21 Range/Units 09:38 Hct 46.4 H (34.0-46.0) % Assessment and Plan Plan: 1 right upper lobe pulmonary nodule, suspicious for malignancy and the patient underwent a robotic-assisted right upper lobe resection along with mediastinal lymphadenopathy. The patient underwent wedge resection of the right upper lobe mass. For now, the patient is postop day #1 . The patient is doing well. Chest tube is in place been noted this of the pneumothorax. No evidence of any air leak. 2 COPD with bilateral emphysematous changes with bullous changes in the upper lobes bilaterally 3 history of smoking 4 history of chronic exertion this was secondary to COPD 5 history of Crohn's disease 6 history of diverticular disease 7 history of first-degree uterine prolapse 8 osteoporosis 9 aneurysm of the thoracic aorta 10 dysplastic nevus Plan the patient can be discharged home on room air oxygen. the patient can be discharged home today. Continue tramadol for pain control chest tube will be removed. outpatient follow-up regarding the results of the wedge resection and further treatment recommendations.
== END 2021-06-12 14:28 | disposition home or self-care (01) | DRG 164 ==
LOC: 2ORMAIN 05:50 → 3SCARD 11:35
PROVIDERS: ADMIT Thoracic Surgery (Cardiothoracic Vascular Surgery); ATTEND Thoracic Surgery (Cardiothoracic Vascular Surgery)
PROC: 0W9930Z Drainage of Right Pleural Cavity with Drainage Device, Percutaneous Approach (ICD-10-PCS; principal; 2021-06-11 07:30)
PROC: 8E0W4CZ Robotic Assisted Procedure of Trunk Region, Percutaneous Endoscopic Approach (ICD-10-PCS; principal; 2021-06-11 07:30)
PROC: 07B70ZX Excision of Thorax Lymphatic, Open Approach, Diagnostic (ICD-10-PCS; principal; 2021-06-11 07:30)
PROC: 0BBC4ZZ Excision of Right Upper Lung Lobe, Percutaneous Endoscopic Approach (ICD-10-PCS; principal; 2021-06-11 07:30)
DX: C34.11 Malignant neoplasm of upper lobe, right bronchus or lung (principal); J93.9 Pneumothorax, unspecified; K50.90 Crohn's disease, unspecified, without complications; Z87.891 Personal history of nicotine dependence; F32.A Depression, unspecified; I71.2 Thoracic aortic aneurysm, without rupture; J44.9 Chronic obstructive pulmonary disease, unspecified; K57.90 Diverticulosis of intestine, part unspecified, without perforation or abscess without bleeding; D23.9 Other benign neoplasm of skin, unspecified; N81.6 Rectocele; N81.2 Incomplete uterovaginal prolapse; K64.8 Other hemorrhoids; M81.0 Age-related osteoporosis without current pathological fracture; Z20.822 Contact with and (suspected) exposure to COVID-19; Z79.51 Long term (current) use of inhaled steroids; Z86.79 Personal history of other diseases of the circulatory system; Z98.1 Arthrodesis status; Z98.890 Other specified postprocedural states; Z90.89 Acquired absence of other organs; Z83.2 Family history of diseases of the blood and blood-forming organs and certain disorders involving the immune mechanism; Z90.49 Acquired absence of other specified parts of digestive tract
CPT/HCPCS: 64999; 71045; 71046; 85025; 86850; 86900; 86901; 87635; 88305; 88307; 88313; 88331; 88341; 88342; 94640